=== PATIENT | female | born 1985 | race Asian ===

== ENCOUNTER → 2016-06-05 | Outpatient (CLI) | payer OTHER ==
[~2016-06-05] MED LIST: PRENTAB26 PO
== END | disposition home or self-care (01) ==
LOC: C.LAB1850 07:24
PROVIDERS: ATTEND Obstetrics & Gynecology
DX: O28.9 Unspecified abnormal findings on antenatal screening of mother (principal)

== ENCOUNTER → 2016-07-19 | Outpatient (CLI) | payer OTHER | END | disposition home or self-care (01) | LOC: C.LABSPEC 10:54 | PROVIDERS: ATTEND Obstetrics & Gynecology | DX: Z34.03 Encounter for supervision of normal first pregnancy, third trimester (principal) ==

== ENCOUNTER → 2016-07-29 | Outpatient (CLI) | payer OTHER ==
[2016-07-29 09:42] LABS: PATIENT HEIGHT 162.6 cm
[2016-07-29 11:06] LABS: CREATININE 0.72 mg/dl (0.6-1.2); URINE TOTAL PROTEIN CALC 376.6 mg/24 hr (0-149.1)
== END | disposition home or self-care (01) ==
LOC: C.LABSPEC 09:21
PROVIDERS: ATTEND Obstetrics & Gynecology
DX: O13.3 Gestational [pregnancy-induced] hypertension without significant proteinuria, third trimester (principal)

== ENCOUNTER → 2016-08-03 | Outpatient (CLI) | payer OTHER ==
[2016-08-03 17:29] LABS: BASO % 0.3 %; BASO ABS # 0.03 K/uL (0-0.2); COMPLETE YES; EOS % 1.2 %; HEMATOCRIT 39.3 % (37-47); IG% 0.3 %; LYMPH % 20.2 %; LYMPH ABS # 1.85 K/uL (1.2-3.4); MEAN CELL VOLUME 89.5 fL (80-100); MEAN CORPUSCULAR HEMOGLOBIN 32.1 pg (25-34); MEAN CORPUSCULAR HGB CONC 35.9 g/dl (32-36); MEAN PLATELET VOLUME 10.3 fL (7.4-10.4); MONO % 7.8 %; NEUT % 70.2 %; PLATELET COUNT 152 K/uL (130-400); RED BLOOD COUNT 4.39 M/uL (4.2-5.4); WHITE BLOOD COUNT 9.16 K/uL (4.8-10.8)
[2016-08-03 17:53] LABS: ALKALINE PHOSPHATASE 173 U/L (45-117); ALT/SGPT 25 U/L (12-78); AST/SGOT 23 U/L (15-37); URIC ACID 6.1 mg/dl (2.6-7.2)
== END | disposition home or self-care (01) ==
LOC: C.LAB1850 16:45
PROVIDERS: ATTEND Obstetrics & Gynecology
DX: O12.13 Gestational proteinuria, third trimester (principal)

== ENCOUNTER 2016-08-06 19:53 | Outpatient (CLI) | payer OTHER ==
[2016-08-07] MEDS ORDERED: PRENTAB26 PO (11:57)
--- NOTE | 2016-08-16 23:09 | DISCHARGE SUMMARY ---
ADMISSION DIAGNOSES: 1. A 30-year-old 1, para 0 at 39 weeks 1 day. 2. Gestational proteinuria. 3. Induction of labor. DISCHARGE DIAGNOSES: Same. PROCEDURE: Narayan balloon placement for induction of labor. DESCRIPTION OF HOSPITAL STAY: The patient was brought to labor and delivery for induction of labor for the above diagnoses. A Narayan bulb was placed without difficulty. She was observed for 1 hour and was then discharged to home. CONDITION ON DISCHARGE: Stable and good. ACTIVITY: Rest, follow up tomorrow in labor and delivery. DIET: Regular. MEDICATIONS: None.
== END 2016-08-06 21:00 | disposition home or self-care (01) ==
LOC: C.OPB 19:53 → C.LD 19:53 → C.OPB 21:00 → UNDODISIN 21:00 → EDSTATUS 08-07 13:42
PROVIDERS: ATTEND Obstetrics & Gynecology
DX: O12.13 Gestational proteinuria, third trimester (principal); Z3A.39 39 weeks gestation of pregnancy

== ENCOUNTER 2016-08-07 09:48 | Inpatient (IN) | payer OTHER ==
[~2016-08-07] VITALS: Ht 162.6 cm; Wt 65.0 kg
[2016-08-07] MEDS ORDERED: LACTATED RINGER'S 1000ML 1,000 ML IV PRN (10:24)
[2016-08-07] MEDS ORDERED: LACTATED RINGER'S 1000ML 500 ML IV PRN ×2 (10:24→14:24)
[2016-08-07] MEDS ORDERED: OXYTOCIN 30 UNITS/500ML NSS IV PRN ×2 (10:30→17:00)
[2016-08-07] MEDS: LACTATED RINGER'S 1000ML 1,000 ML IV SCH ×2 (11:25→15:59)
[2016-08-07 11:26] LABS: HEMATOCRIT 37.8 % (37-47); MEAN CELL VOLUME 91.5 fL (80-100); MEAN CORPUSCULAR HEMOGLOBIN 32.4 pg (25-34); MEAN CORPUSCULAR HGB CONC 35.4 g/dl (32-36); MEAN PLATELET VOLUME 10.7 fL (7.4-10.4); PLATELET COUNT 143 K/uL (130-400); RED BLOOD COUNT 4.13 M/uL (4.2-5.4); WHITE BLOOD COUNT 12.27 K/uL (4.8-10.8)
[2016-08-07 11:51] VITALS: Ht 162.6 cm; Wt 65.0 kg
[2016-08-07] MEDS ORDERED: PRENTAB26 PO (11:57)
[2016-08-07] MEDS ORDERED: BUPIVACAINE 0.25% 30 ML VIAL ONE (13:22)
[2016-08-07] MEDS ORDERED: EpHEDrine SULFATE INJ 50 MG/ML AMP ONE (13:22)
[2016-08-07] MEDS ORDERED: FENTANYL 2MCG/ML ROPIV 1.25MG/ML 100ML BAG EPI ONE (13:22)
[2016-08-07] MEDS ORDERED: FENTANYL CITRATE INJ 50 MCG/1 ML 2 ML VIAL ONE ×4 (13:23→23:47)
--- NOTE | 2016-08-07 13:28 | Medical Student: [facility] ---
Med Student History & Physical Date of Service Aug 07, 2016. Chief Complaint Induction History of Present Illness Source: patient, clinic records This is a 30 year old female with KAROL of 08/12/16 by LMP at 39 weeks and 2 days gestational age presenting for induction of labor due to suspect mild pre-eclampsia. At 38 weeks GA the patient's 24 hours urine protein was elevated to 376 mg/24hour prompted by 1+ protein on urine dipstick. Her BPs in the office have all been normal. However, the patient was seen in the office yesterday by Dr. Thomas, who review her [facility] labs and noted that the patient was hemoconcentrated with a platelet count of [id number], uric acid 6.1 consistent with mild pre-eclampsia. She had a Narayan bulb placed yesterday in anticipation of induction. At bedside now, the patient describes active movement, denies bleeding, leakage of fluids, painful contractions. She has no obstetric history. Her gynecological history is significant for menarche at age 16 with menses every 35 days. LMP was 11/06/2015. Last pap smear in January 2016 was negative for intraepithelial lesion or malignancy. No history of STDs. Past medical history is significant for varicella infection. No past surgical history. Family history of hypertension, DM, and lung cancer in paternal grandfather. Social history is significant for being currently and she lives with her , they are both nonsmokers. Denies alcohol and drugs. No allergies. At home she takes PNVs only. Denies change in vision, headache, dizziness, CP, SOB, leg pain/redness. The patient's blood type is O+ and antibody screen negative. She is rubella immune, VDRL/RPR nonreactive, HBsAg and HIV negative, G&C negative, and GBS negative. OB History See HPI. She has no obstetric history. MANAGER RESTAURANT History See HPI. Her gynecological history is significant for menarche at age 16 with menses every 35 days. LMP was 11/06/2015. Last pap smear in January 2016 was negative for intraepithelial lesion or malignancy. No history of STDs. Past Medical History See HPI. Past medical history is significant for varicella infection. Past Surgical History None. Family History HTN, DM, lung cancer in paternal grandfather. No history of GI, breast, ovarian , endometrial cancers. Social History Smoking Status: Never Smoker Smokeless Tobacco Use: No Alcohol Use: none Drug Use: none Marital Status: Housing status: lives with family Allergies Coded Allergies: No Known Allergies (Unverified , 08/07/16) Home Medications Multivit/Min/Iron/Fol Ac/Pren ( Vitamin), 1 TAB PO DAILY Review of Systems Constitutional: No fever Eyes: No worsening of vision Respiratory: No shortness of breath Cardiovascular: No chest pain Genitourinary - Female: No dysuria Neurologic: No numbness/tingling, No vertigo Psychiatric: No depression symptoms Endocrine: No excessive thirst Hematologic / Lymphatic: No abnormal bleeding/bruising Integumentary: No rash Physical Exam Vital Signs: HR 80, BP 122/76 General Appearance: WD/WN Eyes: EOMI ENT: hearing grossly normal Neck: supple Respiratory/Chest: lungs clear, normal breath sounds, no respiratory distress, no accessory muscle use Cardiovascular: regular rate, rhythm, no murmur Abdomen / GI: + pertinent finding (gravid) Extremities: normal inspection, no calf tenderness Neurologic/Psych: alert, normal mood/affect, oriented x 3 Skin: normal color, warm/dry, no rash Cervical exam: dilated 5cm, 90% effaced, -1 station Narayan bulb located in vagina, removed during exam. Monitoring External Monitor: Category 1 - baseline 135, present accelerations, no early, late, or variable decelerations. Tocodynamometer: No contractions Laboratory Results 08/07/16 10:46 Test 08/07/16 10:46 Red Blood Count 4.13 M/uL (4.2-5.4) Mean Corpuscular Volume 91.5 fL (80-100) Mean Corpuscular Hemoglobin 32.4 pg (25-34) Mean Corpuscular Hemoglobin Concent 35.4 g/dl (32-36) RDW Standard Deviation 45.1 fL (36.4-46.3) RDW Coefficient of Variation 13.6 % (11.5-14.5) Mean Platelet Volume 10.7 fL (7.4-10.4) Assessment and Plan 30 year old female at 39 weeks and 2 days gestational age presenting for induction of labor due to mild pre-eclampsia. 1.Monitor vitals, particularly BP 2.External monitoring 3.Order CBC 4.Start IVFs and start oxytocin 1 milliunits/min and plan to increase by 1 milliunits/min every 30 minutes until regular contractions 5.Plan for artificial rupture of membranes if spontaneous rupture does not occur 6.Periodic cervical exams to check for progression of labor and cervical changes 7.Patient counseled on pain management and will notify if she wants an epidural
--- NOTE | 2016-08-07 14:15 | Medical Student: [facility] ---
Medical Student Progress Note Date of Service Aug 07, 2016. Progress Note Subjective: 30 year old female at 39 weeks and 2 days gestational age presenting for induction of labor due to mild pre-eclampsia. Dr. Sandy artificially ruptured the patient's membranes at 1PM, approximately 2.5 hours ago. At that time the patient was 6cm dilated, 90% effaced, and -2 station. Patient is receiving spinal/epidural now, at 2:15PM, by Dr. Rivera for pain management. Her oxytocin is at 5 milliunits/min IV infusion. Total urine output 300mls per nurse. Objective: Vitals: HR 75, BP 109/62, 97% on RA General: sitting in bed more comfortable immediately following spinal/epidural Cardio: normal S1 and S2, no S3, no S4, no murmurs Resp: clear to auscultation in anterior lung mota, no wheezing Lower extremities: 1+ pedal edema bilaterally, no edema EFM: category 1 tracing with baseline 135-140, moderate variability, present accelerations, no early, late, or variable decelerations Mascotte: contractions every 2-3 minutes Assessment/Plan: Patient is in active stage 1 of labor with reassuring heart tracing. Patient plans to nap at this time. Will re-examine cervix and track labor progression with Dr. Sandy.
[2016-08-07] MEDS ORDERED: NALOXONE HCL INJ 1 MG in SODIUM CHLORIDE 0.9% 1000ML 1,000 ML IV PRN (14:24)
[2016-08-07] MEDS ORDERED: NALOXONE HCL INJ 0.4 MG/1 ML VIAL/CARP IV PRN (14:30)
[2016-08-07] MEDS ORDERED: ONDANSETRON INJ 2 MG/ML 2 ML VIAL IV PRN ×2 (14:30→23:45)
[2016-08-07] MEDS ORDERED: DiphenhydrAMINE HCL 50 MG/ML VIAL IV PRN (14:30)
[2016-08-07] MEDS ORDERED: FENTANYL 2MCG/ML ROPIV 1.25MG/ML 100ML BAG EPI PRN (14:30)
[2016-08-07] MEDS ORDERED: NALBUPHINE HCL INJ 10 MG/ML AMP IV PRN (14:30)
[2016-08-07] MEDS ORDERED: EpHEDrine SULFATE INJ 50 MG/ML AMP IV PRN ×2 (14:30→23:45)
[2016-08-07] MEDS ORDERED: LACTATED RINGER'S 1000ML 1,000 ML IV SCH (16:56)
[2016-08-07] MEDS ORDERED: ACETAMINOPHEN 325 MG TAB PO PRN (17:00)
[2016-08-07] MEDS ORDERED: SUPERCREAM 0.870 % 15GM JAR EXT PRN (17:00)
[2016-08-07] MEDS ORDERED: BENZOCAINE 20% AER SPR 82.5 GM CAN EXT PRN (17:00)
[2016-08-07] MEDS ORDERED: OXYCODONE/ACETAMINOPHEN 5-325 TAB PO PRN (17:00)
[2016-08-07] MEDS ORDERED: LANOLIN OINT EXT PRN ×2 (17:00)
[2016-08-07] MEDS ORDERED: HYDROCORTISONE ACETATE 25 MG SUPP PR PRN (17:00)
[2016-08-07] MEDS ORDERED: FENTANYL CITRATE INJ 50 MCG/1 ML 2 ML VIAL IV STA (17:16)
--- NOTE | 2016-08-07 17:20 | Medical Student: [facility] ---
Medical Student Delivery Note Pre-delivery diagnosis: -30 year old female at 39 weeks and 2 days gestational age with mild preeclampsia, spontaneous vaginal delivery -Induced with artificial rupture of membranes approximately 3.5 hours ago Post-delivery diagnosis: -same Procedure: Spontaneous vaginal delivery and repair of 2nd degree perineal laceration and sulcal laceration Estimated blood loss: 500mls Finding: viable male , apgars 8&9, weight pending Description of delivery: Pt presented today for induction secondary to mild preeclampsia. Her Narayan bulb was removed and oxytocin was given to induce labor. At 15:34 the patient was 10cm dilated and began to push. The infant was in the UZAIR position. The head was delivered, nuchal cord x 1 was reduced. Next the shoulders were delivered followed by the body at 16:36. The baby was subsequently placed on the mother's chest and dried with a blanket, and bulb suctioned. A spontaneous cry was heard. The cord blood was doubly clamped and cut by the father. Cord blood was collected. The placenta was delivered at 1639 spontaneously with gently traction and suprapubic massage after cord lengthening and flash of blood. It was intact and later examined to reveal 2 umbilical arteries and 1 umbilical vein. Upon palpation the uterus was firm. Next, the perineum, vagina, and cervix were inspected for tears. A 2nd degree perineal laceration and sulcal tear were repaired with 2-0 and 3-0 Vicryl. The patient tolerated the procedure well and hemostasis was achieved. Lastly, sponges, instruments, and needles were counted and correct at the end of delivery.
--- NOTE | 2016-08-07 17:44 | Anesthesia Procedure Note ---
Anesthesia Epidural Removal Nt Date & Time Aug 07, 2016 at 17:45 Vital Signs Pain Intensity: 3.0 Notes Mental Status: alert / awake / arousable, participated in evaluation Nausea / Vomiting: adequately controlled Pain: adequately controlled Airway Patency, RR, SpO2: stable & adequate BP & HR: stable & adequate Hydration State: stable & adequate Neuraxial Anesthesia: was administered Anesthetic Complications: no major complications apparent, pt satisfied with anesthetic care Epidural: removed without complications, with tip intact
[2016-08-07 19:40] VITALS: BP 128/78; PULSE 98; TEMP 36.9; O2SAT 99
[2016-08-07] MEDS: DOCUSATE SODIUM 100 MG CAP PO SCH (20:00)
[2016-08-07] MEDS ORDERED: NURSING VERBAL MED ORDER ONE ×2 (21:45)
[2016-08-07] MEDS ORDERED: MISOPROSTOL 200 MCG TAB PR STA (21:48)
[2016-08-07 21:55] VITALS: BP 115/80; PULSE 93; TEMP 37.1
[2016-08-07] MEDS ORDERED: MISOPROSTOL 100 MCG TAB PR STA (21:57)
[2016-08-07 22:10] LABS: HEMATOCRIT 32.7 % (37-47)
--- NOTE | 2016-08-07 22:39 | Progress Note ---
Progress Note Date of Service Aug 07, 2016. Progress Note I was called to bedside as patient is feeling faint and has been passing large blood clots. Per RN, despite a firm fundus she has lost several clots after moving to PP room that were at least 500cc in volume by weight of chux. This is in addition to the estimated 500cc at delivery, totalling therefore at least 1L documented losses. On exam the patient appears pale, diaphoretic, and weak. She is speaking slowly and lying flat on her back. Abdomen is flat, fundus palpates firm and below the umbilicus. Vaginally there is a semisolid mass in the vault which is able to be dislodged and turns out to be a large ball of clot. With expression, a total of 10" x 8" x 2" thick pile of clot poured from the vagina onto the chux between the patient 's legs. Bright red free-flowing blood continues per vagina after expression. Stat H&H was already ordered and drawn. 800mcg cytotec given vaginally by RN as well when I was first notified of her bleeding and prior to my arrival at bedside. Hemoglobin now resulted in 11's which I do not believe will be her final / true result given the amount of clot I just expressed. I am told that in order to place Bakri balloon, I must move the patient from her PP room to the L&D side of the floor. I am concerned about waiting for an operative team to bring the patient to the main OR given the rapidity of her bleeding and her symptoms. I also do not feel multiple relocations are in her best interest at this time. I have asked that she be brought STAT to the 4th floor OR for exam under anesthesia, likely curettage, possible balloon placement. Dr. Rivera is now meeting the patient in preparation for same.
[2016-08-07] MEDS ORDERED: PROPOFOL IV EMULSION 10 MG/ML 20 ML VIAL IV ONE (22:44)
[2016-08-07] MEDS ORDERED: SUCCINYLCHOLINE 100MG/5ML SYR IV ONE (22:57)
[2016-08-07] MEDS ORDERED: ONDANSETRON INJ 2 MG/ML 2 ML VIAL ONE (22:58)
[2016-08-07] MEDS ORDERED: PHENYLEPHRINE 100MCG/ML 5ML SYR ONE (22:58)
[2016-08-07] MEDS ORDERED: DEXAMETHASONE SOD INJ 4 MG/ML VIAL ONE (22:58)
[2016-08-07] MEDS ORDERED: AMPICILLIN/SULBACTAM SOD INJ 3,000 MG in SODIUM CHLORIDE 0.9% 100ML 100 ML IV STA (23:19)
[2016-08-07] MEDS ORDERED: NALOXONE HCL 0.4 MG/1 ML VIAL/CARP IV PRN (23:45)
[2016-08-07] MEDS ORDERED: MEPERIDINE HCL 25 MG/ML CARP IV PRN (23:45)
[2016-08-07] MEDS ORDERED: FLUMAZENIL 0.1 MG/1 ML 10 ML VIAL IV PRN (23:45)
[2016-08-07] MEDS ORDERED: ATROPINE SULFATE 0.1 MG/ML 5ML SYR IV PRN (23:45)
[2016-08-07] MEDS ORDERED: HYDROmorphone INJ 2 MG/ML SYR/VIAL IV PRN (23:45)
[2016-08-07] MEDS ORDERED: LABETALOL HCL IV 5 MG/ML 20ML IV PRN (23:45)
[2016-08-07] MEDS ORDERED: PHENYLEPHRINE 100MCG/ML 5ML SYR IV PRN (23:45)
[2016-08-07 23:52] LABS: HEMATOCRIT 28.6 % (37-47); MEAN CELL VOLUME 91.7 fL (80-100); MEAN CORPUSCULAR HEMOGLOBIN 32.1 pg (25-34); MEAN PLATELET VOLUME 9.8 fL (7.4-10.4); PLATELET COUNT 140 K/uL (130-400); RED BLOOD COUNT 3.12 M/uL (4.2-5.4); WHITE BLOOD COUNT 18.42 K/uL (4.8-10.8)
[2016-08-07] MEDS: FENTANYL CITRATE INJ 50 MCG/1 ML 2 ML VIAL IV PRN (23:53)
[2016-08-08] VITALS (9 sets, daily range): BP systolic 101–116; BP diastolic 70–77; PULSE 73–105; TEMP 36.7–37.1; O2SAT 96–98
[2016-08-08 00:11] LABS: BASO % 0.2 %; BASO ABS # 0.03 K/uL (0-0.2); COMPLETE YES; EOS % 0.1 %; IG% 0.3 %; LYMPH % 8.3 %; LYMPH ABS # 1.53 K/uL (1.2-3.4); MONO % 5.1 %
--- NOTE | 2016-08-08 00:21 | Anesthesiology Progress Note ---
Anesthesia Post Op Note Date & Time Aug 08, 2016 at 00:19 Vital Signs Pain Intensity: 4.0 Vital Signs Past 12 Hours Date Time Temp Pulse Resp B/P Pulse Ox O2 Delivery O2 Flow Rate FiO2 08/07/16 21:55 37.1 93 20 115/80 08/07/16 19:40 Room Air 08/07/16 19:40 36.9 98 18 128/78 99 Room Air Notes Mental Status: alert / awake / arousable, participated in evaluation Pt Amnestic to Procedure: Yes Nausea / Vomiting: adequately controlled Pain: adequately controlled, improving with treatment Airway Patency, RR, SpO2: stable & adequate BP & HR: stable & adequate Hydration State: stable & adequate Anesthetic Complications: no major complications apparent The patient had emergent surgery due to hemorrhage. She tolerated the procedure well and is stable in recovery. Her postop hgb was 10.
[2016-08-08] MEDS: FENTANYL CITRATE INJ 50 MCG/1 ML 2 ML VIAL IV PRN (00:37)
--- NOTE | 2016-08-08 01:30 | OPERATIVE REPORT ---
DATE OF OPERATION: 08/07/2016 PREOPERATIVE DIAGNOSES: 1. hemorrhage, estimated greater than 1 liter. 2. Failure to respond to conservative measures. 3. Suspected vaginal wall collection. POSTOPERATIVE DIAGNOSES: Left vaginal wall hematoma, disruption of repair of right sulcus and perineum, and minimal retained products. SURGEON: Dr. Sydni Sandy. ASSIST: None. ESTIMATED BLOOD LOSS: 100 mL intraoperative losses. COMPLICATIONS: None. DISPOSITION: Stable to labor and delivery room. DESCRIPTION OF PROCEDURE: Stanford Trent is a 30-year-old 1, para 0, who was delivered of her first several hours prior to this procedure via a spontaneous vaginal delivery. At the time of delivery, her delivery blood loss was estimated at 500 mL. A right sulcus laceration extending into the right labia was identified and repaired, and a second-degree perineal laceration was also repaired. After delivery, the patient's nurses noted an increased amount of bright red vaginal bleeding. They weighed the patient's bedding and calculated additional losses of 500 mL in addition to those at the time of delivery for a total of 1 liter of loss. I gave verbal orders for 800 mcg of Cytotec to be given rectally and a stat H\T\H, both of which were done. As soon as I was able to get to the bedside, I examined the patient myself, and with vaginal exam, a large semisolid mass was palpable in the vagina. This was gently disrupted and with fundal massage a large volume of clot was expressed per vagina. While resting on the chucks in the bed between the patient's legs, this was noted to be 8 x 10 inches in size and approximately 2 inches thick and I estimate this at approximately 500 mL of additional clot. Bright red free vaginal bleeding followed this expression of clot as well. The fundus at all times was felt to be firm and below the umbilicus. Given the large volume of clot with an estimated total loss at this point of 1.5 liters as well as the patient's symptoms which included lightheadedness, a pale complexion, and fatigued, decision was made to bring the patient for exam under anesthesia with possible uterine curettage, possible repair of vaginal lacerations, possible identification and treatment of cervical or vaginal bleeding sources, possible placement of Bakri balloon. The patient was also verbally and formally consented for blood transfusion, for which she and her both gave consent. Of note, the patient was having a blood draw at the time papers were being signed, so her signed on her behalf and in her presence. Once all consents were obtained, the patient was brought to the operating room where general endotracheal anesthesia was established by Dr. Rivera. The patient was placed in stirrups in the dorsal lithotomy position, prepped and draped in standard sterile fashion, and a hard timeout was taken. About 100 mL of additional clot were expressed from the uterus, leading me to estimate her total blood loss at this point at 1600 mL. The cervix was easily identified. The fundus was firm. A Chintan curette was passed gently through the cervix to the uterine fundus and 1 pass through each of the anterior, posterior, left and right rowe was undertaken. This retrieved a tiny amount of what could have been clot versus retained tissue but did not seem significant. The vast majority of active bleeding was observed to be coming from an area on the left vaginal wall. Of note, approximately 40% of the vaginal epithelium covering the entire left wall was black and blue in appearance. There was an area in the center of this which appeared to be disrupted and from this area the bright red blood was flowing. It is my belief that the patient had a large left vaginal wall hematoma which ruptured either spontaneously or during exam and that the vast majority of her bleeding was coming from this site. Starting at the apex of the ecchymotic area, an anchor suture was placed and a running locked suture was run down the left sulcus in order to close the spontaneous rupture site as well as to compress the epithelium to the underlying tissues. Once this was done, the bleeding through the puncture site was noted to stop. The previously repaired right sulcus had been disrupted with the sutures torn, likely due to her repeated vaginal exams. This was gently reapproximated using Vicryl suture and her second-degree perineal laceration which had been similarly disrupted was in re-repaired again using Vicryl. At the completion of this procedure, the patient's uterus remained firm. Bleeding from the cervical os was minimal to none. The left vaginal wall was significantly compressed and flattened back into its normal anatomical position, and there was no active bleeding from any of the vaginal wall sites. A roll of Kerlix moistened with saline and K-Y jelly was then used to pack the vaginal vault, and a Narayan catheter was also placed and noted to drain clear yellow urine. The patient was then transferred back to her room where another hemoglobin and hematocrit will be obtained as I believe her true value will be significantly lower than what was seen right before we took her to the operating room. Two units of blood have been typed and crossed and are ready to transfuse if required. I attest to the content of the Intraoperative Record and any orders documented therein. Any exceptio ns are noted below.
[2016-08-08] MEDS ORDERED: NURSING VERBAL MED ORDER ONE (01:45)
[2016-08-08] MEDS ORDERED: KETOROLAC TROMETHAMINE 15 MG/ML VIAL IV. STA (01:46)
[2016-08-08 05:40] LABS: HEMATOCRIT 25.5 % (37-47)
[2016-08-08] MEDS ORDERED: AMPICILLIN/SULBACTAM SOD INJ 1,500 MG in SODIUM CHLORIDE 0.9% 100ML 100 ML IV SCH (06:00)
--- NOTE | 2016-08-08 06:25 | Medical Student: [facility] ---
Medical Student Progress Note Date of Service Aug 08, 2016. Progress Note Subjective: 30 year old female s/p spontaneous vaginal delivery yesterday producing a viable male and s/p surgery after left vaginal wall hematoma secondary to disruption of repair of right sulcus and perineal laceration a few hours after . At this time, she is lying in bed. Her and are also in the room. She attempted to breast feed once yesterday and the baby is now being fed with breast milk by means of a syringe. She plans to breastfeed exclusively at home. Reports pain this morning is moderate and controlled with Percocet. She does admit to some lower abdominal/pelvic pain that she equates to cramps. She is not ambulating yet because of her surgery and blood loss yesterday. A Narayan catheter is in place. She has not had a bowel movement but is passing gas. She has had some orange juice and is planning to increase her diet today. Her vaginal bleeding has improved significantly following surgery. She denies foul smelling discharge or large clots. Denies fever/chills, CP, SOB , lightheadedness, dizziness, leg pain/redness this morning. Objective: Vitals: T 36.8, P 90, RR 14, 105/71, 96% RA General: lying comfortably in bed, tired appearing, NAD Eyes: No edema, no erythema, conjunctival pallor Heart: normal S1 and S2, no murmurs, no gallops, no rubs Lungs: clear to auscultation, no wheezing, no rales, no rhonchi Abdo: firm non-tender uterus approximately 1.5 cm below umbilicus, bowel sounds present Extremities: no edema, no erythema, no tenderness Labs: Hemoglobin 9.0 (L), hematocrit 25.5 (L) Assessment/Plan: 30 year old female s/p spontaneous vaginal delivery yesterday producing a viable male infant and s/p left vaginal wall hematoma after disruption of repair of right sulcus and perineal laceration a few hours after . Surgery with Dr. Sandy yesterday to repair disruption of lacerations. Her hemoglobin and BP most likely represent blood loss from yesterday as patient's vaginal bleeding has improved, and denies dizziness/lightheadedness this morning. Plan to recheck repairs and wound with Dr. Sandy present. Continue to monitor BP and H&H. Encourage PO food today. Continue Percocet for pain control. Routine post care.
--- NOTE | 2016-08-08 07:01 | DELIVERY SUMMARY ---
DATE OF OPERATION: 08/07/2016 VAGINAL DELIVERY NOTE PREOPERATIVE DIAGNOSIS: 1. Ulloa intrauterine at 39+ weeks. 2. Gestational proteinuria. 3. Induction of labor. POSTOPERATIVE DIAGNOSIS: Same. PROCEDURE: Spontaneous vaginal delivery and repair of second degree laceration with right sulcus tear. SURGEON: Dr. Sandy. SUPERVISOR LOGGING: MS3. ESTIMATED BLOOD LOSS: 500 mL. FINDINGS: Placenta spontaneous and intact with a 3-vessel cord. COMPLICATIONS: None. DISPOSITION: Stable to labor and delivery. DESCRIPTION: Stanford is a who presented at 39+ weeks for induction of labor due to gestational proteinuria, then re-presented to the hospital on August 07 for induction. At that time, Pitocin and artificial rupture of membranes were used to induce labor and an epidural was provided for the patient's comfort. She reached complete dilation and pushed very well and delivered the head of the infant in the JOSEPH position, followed by reduction of a nuchal cord x1, and then the anterior and posterior shoulders and remainder of the baby with no difficulty. Placenta was delivered spontaneously, and noted to be intact with a 3-vessel cord. Repair of a sulcus laceration and right labial separation was done with 3-0 Vicryl suture in a running locked manner. Repair of a standard second degree perineal laceration then proceeded again with Vicryl suture in the usual manner with a crown suture to rebuild the perineal body. At the completion of repair the fundus was firm, lochia was minimal, and the patient and were in stable condition having tolerated delivery well. I attest to the content of the Intraoperative Record and any orders documented therein. Any exceptions are noted below. MTDD
--- NOTE | 2016-08-08 07:39 | Progress Note ---
Subjective Aug 08, 2016. Subjective conversation w/ patient, physical exam Ambulation: limited ambulation Voiding: nair catheter in place Passing Gas: Yes Diet Tolerance: Regular Diet Lochia: Moderate Feeding Type: Breast Feeding (baby syringe feeding as breast feeding makes bleeding worse, will continue to attempt breast feeding) Review of Systems Constitutional: + fatigue, No chills, No fever Respiratory: No cough, No shortness of breath Cardiac: No chest pain, No palpitations Abdomen: No nausea, No vomiting Objective Vital Signs Date Time Temp Pulse Resp B/P Pulse Ox O2 Delivery O2 Flow Rate FiO2 08/08/16 07:05 36.7 75 18 113/73 97 Room Air 08/08/16 04:10 36.8 90 14 105/71 96 Room Air 08/08/16 03:10 36.9 88 16 101/70 97 Room Air 08/08/16 02:10 36.9 87 16 103/71 97 Room Air 08/08/16 01:40 36.8 88 16 105/73 96 Room Air 08/08/16 01:10 36.9 85 18 111/77 97 Room Air 08/08/16 01:10 97 Room Air 08/07/16 21:55 37.1 93 20 115/80 08/07/16 19:40 Room Air 08/07/16 19:40 36.9 98 18 128/78 99 Room Air Physical Exam General Appearance: NO APPARENT DISTRESS, other (patient appears pale and tired ) Respiratory/Chest: lungs clear, no respiratory distress Cardiovascular: regular rate, rhythm, no murmur Fundus: Firm, Non-Tender, Relation to Umbilicus (1 cm below umbilicus) Extremities: non-tender, no calf tenderness Laboratory Results Last 24 Hours Test 08/07/16 10:46 08/07/16 22:03 08/07/16 22:09 08/07/16 23:43 White Blood Count 12.27 K/uL 18.42 K/uL Red Blood Count 4.13 M/uL 3.12 M/uL Hemoglobin 13.4 g/dL 11.4 g/dL 10.0 g/dL Hematocrit 37.8 % 32.7 % 28.6 % Mean Corpuscular Volume 91.5 fL 91.7 fL Mean Corpuscular Hemoglobin 32.4 pg 32.1 pg Mean Corpuscular Hemoglobin Concent 35.4 g/dl 35.0 g/dl RDW Standard Deviation 45.1 fL 45.6 fL RDW Coefficient of Variation 13.6 % 13.6 % Platelet Count 143 K/uL 140 K/uL Mean Platelet Volume 10.7 fL 9.8 fL Bedside Glucose 83 mg/dl Neutrophils (%) (Auto) 86.0 % Lymphocytes (%) (Auto) 8.3 % Monocytes (%) (Auto) 5.1 % Eosinophils (%) (Auto) 0.1 % Basophils (%) (Auto) 0.2 % Neutrophils # (Auto) 15.84 K/uL Lymphocytes # (Auto) 1.53 K/uL Monocytes # (Auto) 0.94 K/uL Eosinophils # (Auto) 0.02 K/uL Basophils # (Auto) 0.03 K/uL Immature Granulocyte % (Auto) 0.3 % Immature Granulocyte # (Auto) 0.06 K/uL Red Blood Cell Morphology Unremarkable Test 08/08/16 05:15 Hemoglobin 9.0 g/dL Hematocrit 25.5 % Assessment and Plan Post- Day#: 1 Continue Routine Care: s/p Day 1 - Patient was taken to the OR after delivery yesterday due to continued vaginal bleeding. Patient was found to have a vaginal wall haematoma which was repaired by Dr. Sandy. Her vaginal bleeding has been slowing down and her Hgb was 9.0 this morning. She says she feels much better than she did yesterday and is less fatigued. Her vitals signs were reviewed and are within normal limits - Vital signs reviewed and wnl - Hgb 9.0 this morning and repeat H&H tomorrow - Blood: O+, GBS-, Rubella immune - Encourage ambulation, encourage fluid intake - D/C antibiotics this morning - Dr. Sandy removed vaginal packing and nair this morning - Continue to monitor lochia - CONTINUE POST CARE Resident Physician Supervision Note: I interviewed and examined the patient. Discussed with Dr. Montana and agree with findings and plan as documented in the note. Any exceptions or clarifications are listed here: PPD#1 following IOL for suspected Mild Preeclampsia, followed by PPH for total EBL 1600, taken to OR for prince curettage and closure of vaginal lacs and ruptured vaginal hematoma. As of this morning her pulse has normalized, Hgb is 9, bleeding is minimal with packing removed. The patient feels much better and has color in her lips, looks pale but much better than last night. Will stop Abx as packing/nair are out. Oral iron for anemia. Repeat CBC tomorrow AM as I am surprised her Hgb isn't lower given the bleeding we saw. Documented By: Sydni Sandy
[2016-08-08] MEDS: PRENATAL VITAMIN TAB PO SCH (08:14)
[2016-08-08] MEDS: FERROUS SULFATE 325 MG TAB PO SCH (08:14)
[2016-08-08] MEDS: DOCUSATE SODIUM 100 MG CAP PO SCH ×2 (08:14→20:00)
[2016-08-08] MEDS: IBUPROFEN 600 MG TAB PO PRN (20:04)
[2016-08-09 00:15] VITALS: BP 125/81; PULSE 100; TEMP 36.7; O2SAT 98
[2016-08-09 03:55] VITALS: BP 102/65; PULSE 88; TEMP 36.4; O2SAT 98
[2016-08-09 06:30] LABS: HEMATOCRIT 20.5 % (37-47); MEAN CELL VOLUME 91.9 fL (80-100); MEAN CORPUSCULAR HEMOGLOBIN 32.3 pg (25-34); MEAN CORPUSCULAR HGB CONC 35.1 g/dl (32-36); MEAN PLATELET VOLUME 9.5 fL (7.4-10.4); PLATELET COUNT 144 K/uL (130-400); RED BLOOD COUNT 2.23 M/uL (4.2-5.4); WHITE BLOOD COUNT 16.21 K/uL (4.8-10.8)
--- NOTE | 2016-08-09 07:27 | Progress Note ---
Subjective Aug 09, 2016. Subjective conversation w/ patient, physical exam Ambulation: ambulating normally Voiding: no voiding problems Passing Gas: Yes Diet Tolerance: Regular Diet Lochia: Moderate Feeding Type: Breast Feeding Review of Systems Constitutional: No chills, No fever Respiratory: No cough, No shortness of breath Cardiac: No chest pain, No edema, No palpitations Abdomen: No nausea, No pain, No vomiting Female : No dysuria, No problem reported (vagina is swollen and uncomfortable ), No urinary frequency Objective Vital Signs Date Time Temp Pulse Resp B/P Pulse Ox O2 Delivery O2 Flow Rate FiO2 08/09/16 03:55 36.4 88 18 102/65 98 Room Air 08/09/16 00:15 98 Room Air 08/09/16 00:15 36.7 100 18 125/81 98 Room Air 08/08/16 19:50 36.9 102 18 116/74 98 Room Air 08/08/16 16:30 36.8 73 16 111/74 98 Room Air 08/08/16 16:30 Room Air 08/08/16 12:30 37.1 105 18 109/72 97 Room Air 08/08/16 08:00 Room Air 08/08/16 07:05 36.7 75 18 113/73 97 Room Air Physical Exam General Appearance: NO APPARENT DISTRESS, other (appears tired) Respiratory/Chest: lungs clear, no respiratory distress Cardiovascular: regular rate, rhythm, no murmur Abdomen: non tender Fundus: Firm, Non-Tender, Relation to Umbilicus (1 cm below umbilicus) Extremities: non-tender, no calf tenderness Laboratory Results Last 24 Hours Test 08/09/16 05:41 White Blood Count 16.21 K/uL Red Blood Count 2.23 M/uL Hemoglobin 7.2 g/dL Hematocrit 20.5 % Mean Corpuscular Volume 91.9 fL Mean Corpuscular Hemoglobin 32.3 pg Mean Corpuscular Hemoglobin Concent 35.1 g/dl RDW Standard Deviation 45.8 fL RDW Coefficient of Variation 13.9 % Platelet Count 144 K/uL Mean Platelet Volume 9.5 fL Assessment and Plan Post- Day#: 2 Continue Routine Care: s/p Day 2 - Patient was taken to the OR after delivery due to continued vaginal bleeding. Patient was found to have a vaginal wall haematoma which was repaired by Dr. Sandy. Her vaginal bleeding has been slowing down; however, her Hgb was found to be 7.2 this morning. She says she feels much better than she did yesterday and is less fatigued. She is also able to walk to the toilet, eat a regular diet and is drinking plenty of fluids. - Vital signs reviewed and within normal limits - Hgb 7.2 this morning (9.0 yesterday) - Blood: O+, GBS-, Rubella immune - Encourage ambulation, monitor lochia and encourage breast feeding - Repeat H&H tomorrow - CONTINUE TO MONITOR POST Resident Physician Supervision Note: I interviewed and examined the patient. Discussed with Dr. Dr. Montana and agree with findings and plan as documented in the note. Any exceptions or clarifications are listed here: Patient has a hgb of 7 but is tolerating this very well. she has no sob, cp, lightheadedness, dizziness. Ambulating without difficulty. plan to d/c home. Precautions given. Documented By: Aida Lewis
--- NOTE | 2016-08-09 07:38 | Discharge Instructions ---
Discharge Instructions Date of Service Aug 09, 2016. Admission Reason for Admission: Induction Discharge Discharge Diagnosis / Problem: Discharge Goals Goal(s): Routine recovery after delivery Medications Continue Dispensed Medications: supercream, dermaplast, tucks, lansinoh Activity Recommendations Activity Limitations: per Instructions/Follow-up section . Instructions / Follow-Up Instructions / Follow-Up ACTIVITY RECOMMENDATIONS: * Gradual return to full activity over the next 2-3 weeks. * No lifting - nothing heavier than baby over the next 2-3 weeks. * Do not engage in vigorous exercise, sexual activity or sports until cleared by your physician. * Do not drive or operate any motorized equipment until cleared by your physician. * You may shower/bathe daily. MEDICATIONS: For discomfort or pain, you may use Acetaminophen (Tylenol), Ibuprofen (Advil), or Naproxen (Aleve) following the package directions. For constipation you may use Colace following the package directions. BREAST CARE: If you are not breast feeding: * Wear a supportive bra 24 hours a day for one to two weeks. * Avoid stimulating your breasts and nipples as much as possible during the first few weeks after delivery. * When taking a shower, have the warm water hit your back, not breasts. * When your breasts feel full, apply ice packs. Usually three to four times a day helps ease the discomfort. * Take a mild pain medication (Tylenol / Motrin) when you are uncomfortable. If breast feeding: * Use breast milk to lubricate nipples. Lansinoh cream may be used for sore nipples. You do not need to remove cream prior to breast feeding. If using a different brand of cream, check the label for directions regarding removal of cream prior to nursing. * Wear a supportive bra. * If having problems with breasts or breast feeding, call a rural health consultant or your health care provider. EPISIOTOMY CARE: After delivery, if you have an episiotomy (stitches), the following steps will ease discomfort and aid healing. * For the first 24 hours after delivery, place ice packs next to your episiotomy to help reduce swelling. * After the first 24 hour-period, sitz baths, either portable or in the tub, are suggested. A shower with a shower arm sprayed over the episiotomy may be comforting. * Belkis care should be done after each voiding and bowel movement. Squirt warm water from a plastic bottle over the perineum (region of the body between the anus and urinary opening) and pat dry. * Use Dermoplast to ease discomfort. Shake container. [place] directly over the episiotomy. Place a Tucks on a clean sanitary pad next to your episiotomy. SPECIAL CARE INSTRUCTIONS: When you are discharged from the hospital, it is important for you to follow the instructions listed below: * During the first week at home, you should be able to care for yourself and your baby. In addition, the usual light household activities are encouraged. * Limit your activities to the way you feel. Do not try to clean the house or move furniture. Be sensible. * If you actively engage in sports and have done so up until the time of your delivery, you may resume these activities as soon as you feel able. This may take up to one month or even longer. Use good judgment. * Continue to take your vitamins for at least six weeks after the of your baby. * Your diet need not be limited unless you were on a special diet before your delivery. Breast-feeding mothers need around 2500 calories per day and at least 64-80 ounces of fluid per day (8 to 10 glasses). * You should eat foods from the four major food groups. Crash diets or fad diets are to be avoided. Eating lean meats, fresh fruits and vegetables, low-fat dairy products, high fiber foods and a regular exercise program, will help you get back to your pre- weight without putting your health at risk. * Constipation is sometimes a problem after delivery. Take a mild laxative as needed. If breast feeding, Milk of Magnesia is acceptable to use. You may use a suppository or Fleets enema if no episiotomy. * A daily shower or tub bath is suggested. Be sure to thoroughly and gently dry the perineum. * A bloody vaginal discharge will usually continue until around four weeks post . A small amount of bleeding may continue for as long as six weeks. Vaginal discharge changes from the bright red bleeding after delivery to pink then brownish and finally yellowish-pink before becoming white and disappearing. * Bleeding may increase with activity. Your first period may come in 4-8 weeks. If you are breast feeding, your period may be delayed even longer. * [place] (sex) can begin whenever both you and your partner feel comfortable and do not have any form of genital infection. It is recommended that you wait at least six weeks for internal and external healing to occur. If you have questions, please talk to your health care practitioner. A condom should be used to prevent infection and . * Foreplay, gentle intercourse and lubrication is very important the first several times to prevent pain. A water-based lubricant such as K-Y jelly or Astroglide may be used. * If you have RH negative blood and your baby is RH positive, you will receive RHOGAM by injection prior to discharge. The nurse will give you a card to keep with you that has the date and place that you received RHOGAM after delivery. * During your care, you had a Rubella screen done to check for the presence of rubella antibodies in your blood. If your test was negative, you will receive a Rubella vaccine prior to discharge. This vaccine may cause a fever, soreness at the injection site and flu-like symptoms. If these symptoms persist, notify your health care practitioner. is not advised for one month after a Rubella vaccine. * Verbalizes understanding of car seat law as reviewed with patient nursing. * Car Seat hand-out given and reviewed with patient by nursing. * Shaken baby information reviewed with patient by nursing. Call you doctor if: * Heavy bleeding (saturating several pads an hour) or passing clots the size of your fist. * A fever >101 degrees F (38.3 degrees C) on two occasions four hours apart and /or chills. * Unusual pain in the pelvic or vaginal areas. * "Baby Blues" lasting longer than two weeks. If you have any questions or concerns, call your health care practitioner at . FOLLOW UP VISIT: * Please call the office at to schedule a 6 week examination. It is important you keep this appointment. It is important for you to make arrangements for either yearly or twice yearly check-ups thereafter. Current Hospital Diet Patient's current hospital diet: Regular OB Diet Discharge Diet Recommended Diet: Regular OB Diet Pending Studies Studies pending at discharge: no Medical Emergencies . Who to Call and When: Medical Emergencies: If at any time you feel your situation is an emergency, please call 911 immediately. . Non-Emergent Contact Non-Emergency issues call your: Primary Care Provider, [employer] Director . . "Provider Documentation" section prepared by Nayan Montana. VTE Core Measure Inpt VTE Proph given/why not?: Treatment not indicated
[2016-08-09] MEDS: DOCUSATE SODIUM 100 MG CAP PO SCH (08:07)
[2016-08-09] MEDS: PRENATAL VITAMIN TAB PO SCH (08:07)
[2016-08-09] MEDS: FERROUS SULFATE 325 MG TAB PO SCH (08:07)
[2016-08-09 08:30] VITALS: BP 110/77; PULSE 89; TEMP 36.6; O2SAT 99
[2016-08-09] MEDS: IBUPROFEN 600 MG TAB PO PRN (08:56)
[2016-08-09 14:40] VITALS: BP_DIAS 77; PULSE 89; TEMP 36.6
== END 2016-08-09 15:17 | disposition home or self-care (01) | DRG 775 ==
LOC: C.LD 09:48 → C.OBG 20:08 → C.LD 23:44 → C.OBG 08-08 01:10
PROVIDERS: ADMIT Obstetrics & Gynecology; ATTEND Obstetrics & Gynecology
PROC: 0UQG7ZZ Repair Vagina, Via Natural or Artificial Opening (ICD-10-PCS; principal; 2016-08-07 22:33)
PROC: 0KQM0ZZ Repair Perineum Muscle, Open Approach (ICD-10-PCS; principal; 2016-08-07 22:33)
PROC: 10E0XZZ Delivery of Products of Conception, External Approach (ICD-10-PCS; principal; 2016-08-07 22:33)
PROC: 3E0P7GC Introduction of Other Therapeutic Substance into Female Reproductive, Via Natural or Artificial Opening (ICD-10-PCS; principal; 2016-08-07 22:33)
DX: O12.13 Gestational proteinuria, third trimester (principal); O71.7 Obstetric hematoma of pelvis; O14.04 Mild to moderate pre-eclampsia, complicating childbirth; O70.1 Second degree perineal laceration during delivery; Z37.0 Single live birth; Z3A.39 39 weeks gestation of pregnancy